=== PATIENT | female | born 1975 | race Caucasian/White ===

== ENCOUNTER → 2016-05-28 | Emergency (ER) | payer BC ==
--- NOTE | 2016-05-28 18:56 | ED NURSING NOTES ---
Clinical Report - Nurses [facility] [address] [place] [address] 05/28/2016 18:18 Patient: HALEY STEINBERG TRIAGE Triage time 18:26. Acuity: LEVEL 4. Chief Complaint: Pt took 500 mg Niacin, became flushed and red on face, shoulders, and arms. Alert. --18:41 Nubia Drake R.N. 18:26 05/28/16. BP: 155/89. HR: 72. RR: 18. O2 saturation: 100%. Temp: 97.7 F. Pain level now: 0/10. --18:41 Nubia Drake R.N. Weight: 113.3 kg. Height/Length: 64 inches. BMI: 42.9. --18:38 Nubia Drake R.N. Medications Levothyroxine Sodium Oral 88 mcg, daily. --18:38 Nubia Drake R.N. Ibuprofen Oral 800 mg, PRN. --18:38 Nubia Drake R.N. Allergies Prilosec. --18:39 Nubia Drake R.N. Lidocaine. --18:39 Nubia Drake R.N. History Arrived by EMS. Historian: patient. Accompanied by family. Primary physician (none). This started just prior to arrival and today. ( felt hot). PAST MEDICAL HX: Last normal menstrual period was 4 weeks ago. SOCIAL HX: Never smoker. No alcohol use or drug use. FALL RISK ASSESSMENT: Fall risk assessment completed. No fall risk identified. FUNCTIONAL ASSESSMENT: Functional assessment: no impairments noted. LEARNING NEEDS ASSESSMENT: The learning needs assessment revealed no barriers. --18:41 Nubia Drake R.N. ADDITIONAL SURGERIES: Fractured right leg. Partial thyroidectomy. Vocal cord surgery. --18:40 Nubia Drake R.N. Interventions ID and allergy band on patient. To room. --18:41 Nubia Drake R.N. PHYSICAL ASSESSMENT 18:41 05/28/16. GENERAL / NEURO / PSYCH: Alert. Oriented X 4. --18:41 Nubia Drake R.N. 18:42 05/28/16. SKIN: Skin is intact and warm. No skin rash. --18:42 Nubia Drake R.N. NURSING PROGRESS NOTES 18:41 05/28/16. Patient identifiers checked. Call light placed in reach. Bed placed in lowest position. Patient ready for evaluation- chart flagged. --18:41 Nubia Drake R.N. DISPOSITION / DISCHARGE FALL RISK ASSESSMENT: Fall risk assessment completed. No fall risk identified. --19:06 Nubia Drake R.N. 19:00 05/28/16. BP: 135/75. HR: 75. RR: 18. O2 saturation: 99%. Pain level now: 0/10. --19:06 Nubia Drake R.N. Departure time: 1900. Condition at departure: improved. No learning barriers present. Discharge instructions provided and reviewed with the patient and family. Reviewed referral to family practice for followup. Verbalized understanding. Written instructions provided. The patient was discharged home and accompanied by family. She left the Emergency Department ambulatory and via private vehicle. --19:07 Nubia Drake R.N. Locked/Released at 05/28/2016 19:08 by Nubia Drake R.N.
--- NOTE | 2016-05-28 18:56 | ED CLINICAL REPORT ---
Clinical Report - Physicians/Mid Levels [facility] [address] [place] [address] 05/28/2016 18:18 Patient: HALEY STEINBERG Time Seen: 1845; upon arrival, initial patient contact, initial documentation, patient care assumed. Arrived- By private vehicle. Historian- patient. HISTORY OF PRESENT ILLNESS Chief Complaint: SKIN RASH. The patient has had a skin rash consisting of "redness" located on the face, chest, right shoulder and left shoulder. She has not had itching, swelling or trouble swallowing. No difficulty breathing, dizziness or fainting episodes. This started just prior to arrival and is now gone. It was abrupt in onset. A cause has been identified. She has recently taken medication (took niacin and within an hour got hot red face, started as blotchy and then her entire face got red and it spread down her neck, top of chest and into her shoulders). The patient was assessed by EMS prior to arrival. No hives, wheezing, respiratory distress or hypotension noted by EMS prior to arrival. No treatment prior to arrival. Similar symptoms previously: None. Recent medical care: Not recently seen/assessed. REVIEW OF SYSTEMS No sore throat, cough or fever. All systems otherwise negative, except as recorded above. PAST HISTORY See nurses notes. ADDITIONAL SURGERIES: Fractured right leg. Partial thyroidectomy. Vocal cord surgery. --18:40 Nubia Drake R.N. SOCIAL HISTORY Never smoker. No alcohol use or drug use. No recent travel. Is a local resident. FAMILY HISTORY Negative. ADDITIONAL NOTES The nursing notes have been reviewed with agreement regarding the chief complaint, HPI, ROS, PMH and patient medications and allergies. PHYSICAL EXAM Vital Signs: 05/28/2016 18:26 BP: 155/89. HR: 72. RR: 18. O2 saturation: 100%. Temp: 97.7 F. Pain level now: 0/10. Have been reviewed as normal and appear to be correct. Appearance: Alert. Oriented X3. No acute distress. Head and Neck: Normal external inspection. Eyes: Pupils equal, round and reactive to light. ENT: Ears normal. Nose normal. Pharynx normal. Voice normal. Neck: Neck supple. CVS: Normal heart rate and rhythm. Heart sounds normal. Respiratory: No respiratory distress. Breath sounds normal. Abdomen: Moderately obese. Skin: Skin warm and dry. Normal skin turgor. Extremities: Normal external inspection. Extremities nontender. Skin: Normal skin color. No rash. No urticaria. Neuro: Oriented X 3. No motor deficit. No sensory deficit. PROGRESS AND PROCEDURES Patient counseled in person regarding the patient's stable condition and diagnosis. Differential Diagnosis: Other possible considerations: anaphylaxis, urticaria, dermatitis, angioedema, allergic reaction, niacin flush. Above considerations are based on history and physical exam. Differential diagnosis was discussed with patient. Disposition: Discharged home in good and improved condition (18:56). Condition: good and stable. CLINICAL IMPRESSION Normal exam upon presentation, while in the ED and at discharge. (Niacin Flush). INSTRUCTIONS Warnings: GENERAL WARNINGS: Return or contact your physician immediately if your condition worsens or changes unexpectedly, if not improving as expected, or if other problems arise. Specifically return if problem worsens. Follow-up: Follow up with your doctor in about three days as needed. Call for an appointment. Summary of care provided to patient. Understanding of the discharge instructions verbalized by patient. (Electronically signed by Amy Chávez A.R.N.P. 05/28/2016 19:47)
--- NOTE | 2016-05-28 18:56 | ED NURSING NOTES ---
Clinical Report - Nurses [facility] [address] [place] [address] 05/28/2016 18:18 Patient: HALEY STEINBERG TRIAGE Triage time 18:26. Acuity: LEVEL 4. Chief Complaint: Pt took 500 mg Niacin, became flushed and red on face, shoulders, and arms. Alert. --18:41 Nubia Drake R.N. 18:26 05/28/16. BP: 155/89. HR: 72. RR: 18. O2 saturation: 100%. Temp: 97.7 F. Pain level now: 0/10. --18:41 Nubia Drake R.N. Weight: 113.3 kg. Height/Length: 64 inches. BMI: 42.9. --18:38 Nubia Drake R.N. Medications Levothyroxine Sodium Oral 88 mcg, daily. --18:38 Nubia Drake R.N. Ibuprofen Oral 800 mg, PRN. --18:38 Nubia Drake R.N. Allergies Prilosec. --18:39 Nubia Drake R.N. Lidocaine. --18:39 Nubia Drake R.N. History Arrived by EMS. Historian: patient. Accompanied by family. Primary physician (none). This started just prior to arrival and today. ( felt hot). PAST MEDICAL HX: Last normal menstrual period was 4 weeks ago. SOCIAL HX: Never smoker. No alcohol use or drug use. FALL RISK ASSESSMENT: Fall risk assessment completed. No fall risk identified. FUNCTIONAL ASSESSMENT: Functional assessment: no impairments noted. LEARNING NEEDS ASSESSMENT: The learning needs assessment revealed no barriers. --18:41 Nubia Drake R.N. ADDITIONAL SURGERIES: Fractured right leg. Partial thyroidectomy. Vocal cord surgery. --18:40 Nubia Drake R.N. Interventions ID and allergy band on patient. To room. --18:41 Nubia Drake R.N. PHYSICAL ASSESSMENT 18:41 05/28/16. GENERAL / NEURO / PSYCH: Alert. Oriented X 4. --18:41 Nubia Drake R.N. 18:42 05/28/16. SKIN: Skin is intact and warm. No skin rash. --18:42 Nubia Drake R.N. NURSING PROGRESS NOTES 18:41 05/28/16. Patient identifiers checked. Call light placed in reach. Bed placed in lowest position. Patient ready for evaluation- chart flagged. --18:41 Nubia Drake R.N. DISPOSITION / DISCHARGE FALL RISK ASSESSMENT: Fall risk assessment completed. No fall risk identified. --19:06 Nubia Drake R.N. 19:00 05/28/16. BP: 135/75. HR: 75. RR: 18. O2 saturation: 99%. Pain level now: 0/10. --19:06 Nubia Drake R.N. Departure time: 1900. Condition at departure: improved. No learning barriers present. Discharge instructions provided and reviewed with the patient and family. Reviewed referral to family practice for followup. Verbalized understanding. Written instructions provided. The patient was discharged home and accompanied by family. She left the Emergency Department ambulatory and via private vehicle. --19:07 Nubia Drake R.N. Locked/Released at 05/28/2016 19:08 by Nubia Drake R.N.
--- NOTE | 2016-05-28 19:47 | ED MED RECONCILIATION SUMMARY ---
Patient: HALEY STEINBERG Medication Reconciliation Report [facility] VisitID: [id number] [address] [place] [address] 41y, F Registration Date/Time: 05/28/2016 Weight: 113.3 kg Height/Length: 64 in. BMI: 42.9 ALLERGIES: Lidocaine, Prilosec The patient's Home Medications are listed below: THE FOLLOWING MEDICATIONS NEED TO BE RECONCILED: Ibuprofen Oral 800 mg, PRN Levothyroxine Sodium Oral 88 mcg, daily The source(s) of the original Home Medication information: Not obtained. The following Medications were given to the patient in the Emergency Department: None. The following Medications were prescribed to the patient: None.
--- NOTE | 2016-05-28 19:47 | ED MAR SUMMARY ---
..... Medication Administration Record [facility] [address] [place], [place] [id number] Patient: HALEY STEINBERG Visit ID: [id number] 41y, F Weight: 113.3 kg Height/Length: 64 in BMI: 42.9 ALLERGIES: Lidocaine, Prilosec
--- NOTE | 2016-05-28 19:47 | ED MED RECONCILIATION SUMMARY ---
Patient: HALEY STEINBERG Medication Reconciliation Report VisitID: [id number] [address] [place] [address] 41y, F Registration Date/Time: 05/28/2016 Weight: 113.3 kg Height/Length: 64 in. BMI: 42.9 ALLERGIES: Lidocaine, Prilosec The patient's Home Medications are listed below: THE FOLLOWING MEDICATIONS NEED TO BE RECONCILED: Ibuprofen Oral 800 mg, PRN Levothyroxine Sodium Oral 88 mcg, daily The source(s) of the original Home Medication information: Not obtained. The following Medications were given to the patient in the Emergency Department: None. The following Medications were prescribed to the patient: None.
--- NOTE | 2016-05-28 19:47 | ED MAR SUMMARY ---
..... Medication Administration Record [facility] [address] [place], [place] [id number] Patient: HALEY STEINBERG Visit ID: [id number] 41y, F Weight: 113.3 kg Height/Length: 64 in BMI: 42.9 ALLERGIES: Lidocaine, Prilosec
--- NOTE | 2016-05-28 19:47 | ED DISCHARGE INSTRUCTIONS ---
Patient: HALEY STEINBERG General Instructions [facility] VisitID: [id number] [place] [address] 41y, F Registration Date/Time: 05/28/2016 Normal exam upon presentation, while in the ED and at discharge. (Niacin Flush). INSTRUCTIONS Warnings: GENERAL WARNINGS: Return or contact your physician immediately if your condition worsens or changes unexpectedly, if not improving as expected, or if other problems arise. Specifically return if problem worsens. Follow-up: Follow up with your doctor in about three days as needed. Call for an appointment. Summary of care provided to patient. Understanding of the discharge instructions verbalized by patient. ADDITIONAL INFORMATION Normal Exam [6Yr - Adult] Based on your or your child's exam today, there are no signs of illness or injury. Be assured that the symptoms that worried you are normal. They do not suggest any illness requiring testing or treatment at this time. Home Care: You (or your child) can return to normal activities and diet. If you or your child have new or unusual symptoms not already discussed today, contact the doctor. Follow Up with the doctor for the next routine appointment. For more information: For childrens health information: www.kidshealth.org For adult health information: www.[facility].org You have been given the following additional information: Normal Exam, (Child) (Adult) (Electronically signed by Amy Chávez A.R.N.P. 05/28/2016 19:47)
--- NOTE | 2016-05-28 19:47 | ED DISCHARGE INSTRUCTIONS ---
Patient: HALEY STEINBERG General Instructions [facility] VisitID: [id number] [place] [address] 41y, F Registration Date/Time: 05/28/2016 Normal exam upon presentation, while in the ED and at discharge. (Niacin Flush). INSTRUCTIONS Warnings: GENERAL WARNINGS: Return or contact your physician immediately if your condition worsens or changes unexpectedly, if not improving as expected, or if other problems arise. Specifically return if problem worsens. Follow-up: Follow up with your doctor in about three days as needed. Call for an appointment. Summary of care provided to patient. Understanding of the discharge instructions verbalized by patient. ADDITIONAL INFORMATION Normal Exam [6Yr - Adult] Based on your or your child's exam today, there are no signs of illness or injury. Be assured that the symptoms that worried you are normal. They do not suggest any illness requiring testing or treatment at this time. Home Care: You (or your child) can return to normal activities and diet. If you or your child have new or unusual symptoms not already discussed today, contact the doctor. Follow Up with the doctor for the next routine appointment. For more information: For childrens health information: www.kidshealth.org For adult health information: www.[facility].org You have been given the following additional information: Normal Exam, (Child) (Adult) (Electronically signed by Amy Chávez A.R.N.P. 05/28/2016 19:47)
== END ==
LOC: ED SRH 18:17
DX: R23.2 Flushing (principal); Z79.899 Other long term (current) drug therapy; Z88.8 Allergy status to other drugs, medicaments and biological substances